=== PATIENT | female | born 1975 | race Native Hawaiian/Other Pacific Islander ===

== ENCOUNTER 2016-06-20 09:17 | Day surgery (SDC) | payer OTHER ==
[2016-06-19 13:34] VITALS: BMI 27.4
[2016-06-20] MEDS ORDERED: Lactated Ringer's 1,000 ML IV ONE (12:57)
[2016-06-20] MEDS ORDERED: Midazolam 2 MG/2 ML VIAL ONE (13:04)
[2016-06-20] MEDS ORDERED: Propofol 10 mg/ml Inj (20 ML) ONE (13:04)
[2016-06-20] MEDS ORDERED: ceFAZolin IV 1 gm in Dextrose 50 ML IVPB ONE (13:13)
[2016-06-20] MEDS ORDERED: HYDROmorphone 0.5 mg/0.5 ml ISec IVP PRN (13:33)
--- NOTE | 2016-06-20 13:34 | PCM.SURG1 ---
Surgeon's Initial Post Op Note - Surgeon's Notes Surgeon: dr barriga Hearing Screen Coordinator: none Type of Anesthesia: General LMA Anesthesia Administered By: dr العلي Pre-Operative Diagnosis: 41 yr with endometrial polyp Operative Findings: see the op reoprt Post-Operative Diagnosis: same with endometrial polyp Operation Performed: myosure/d &c, hysterscopy Specimen/Specimens Removed: ecc. emc. polyp Estimated Blood Loss: EBL {In ML}: 20 Drains Used: No Drains Post-Op Condition: Good Date of Surgery/Procedure: 06/20/16 Time of Surgery/Procedure: 14:00
[2016-06-20] MEDS ORDERED: HYDROmorphone 1 mg/ml ISec ONE (14:17)
[2016-06-20] MEDS ORDERED: Lactated Ringer's 500 ML IV ONE (15:00)
[2016-06-20 15:28] VITALS: RESP 12; O2SAT 98
[2016-06-20] MEDS ORDERED: Albuterol HFA 90 mcg/actuation (8 g) INH STA (15:47)
[2016-06-20 17:25] VITALS: TEMP 97
[2016-06-20 17:26] VITALS: BP 119/69; PULSE 73
--- NOTE | 2016-06-20 18:47 | OP ---
PROCEDURE DATE: 06/20/2016 PREOPERATIVE DIAGNOSIS: A 41-year-old 3, para 3 with endometrial polyp. POSTOPERATIVE DIAGNOSIS: A 41-year-old 3, para 3 with endometrial polyp. SURGEON: Baldev Head MD MANUFACTURE SPECIALIST SURGEON: None. PROCEDURE PERFORMED: MyoSure, D and C, hysteroscopy. COMPLICATIONS: None. ESTIMATED BLOOD LOSS: 20 mL. ANESTHESIA: General anesthesia. ANESTHESIOLOGIST: Dr. Fofana. PROCEDURE: After informed consent was obtained, the patient was brought to the operating room, place d on the table where general anesthesia was given. When anesthesia was found to be adequate, she was prepped and draped in a normal sterile fashion. Examination performed, had an 8 week sized uterus, multiparous cervix, no palpable adnexal masses. After that, a sterile catheter was done and 20 mL of urine came out. The anterior lip of the cervix was grasped with the tenaculum and gentle dilatation of the cervix was done. Then, the hysteroscope was introduced where there was found to be a polyp o n the lower uterine segment on the lateral wall of the uterus. Pictures were taken. After that, Patricio Sure was introduced and the polyp was taken out and after that, pictures were taken. After the MyoSu re was removed, ECC was done and the sharp curettage of the uterus was done. It was sent to jhon throlo. The patient tolerated the procedure well. Laps and instruments were correct x 2. Baldev Head MD cc: [id number] TT: 06/20/2016 18:46:07 sameer
== END 2016-06-20 17:10 | disposition home or self-care (01) ==
LOC: C.SDS 09:17
PROVIDERS: ATTEND Obstetrics & Gynecology
DX: N84.0 Polyp of corpus uteri (principal)
CPT/HCPCS: 58563; 88305 ×2; J0690; J1170; J2250; J2704; J3010; J7120

== ENCOUNTER 2017-07-31 12:06 | Day surgery (SDC) | payer OTHER ==
[2017-07-29 10:21] VITALS: BMI 29.2
--- NOTE | 2017-07-31 11:30 | PCM.SURG1 ---
Surgeon's Initial Post Op Note - Surgeon's Notes Surgeon: Dr. Currie Final Tester: Dr. Holcomb PGY2 Type of Anesthesia: General LMA Pre-Operative Diagnosis: Left breast cancer Operative Findings: See operative dication Post-Operative Diagnosis: Left breast Cancer Operation Performed: Left Modified Radical Mastectomy, Axillary lymph node dissection Specimen/Specimens Removed: Left Breast Estimated Blood Loss: EBL {In ML}: 250 Blood Products Given: N/A Drains Used: Jeremiah Post-Op Condition: Good Date of Surgery/Procedure: 07/31/17 Time of Surgery/Procedure: 11:30
[2017-07-31] MEDS: HYDROmorphone 0.5 mg/0.5 ml ISec IVP PRN ×4 (11:45→12:15)
[~2017-07-31 12:06] MED LIST: Albuterol 0.083% Inhal Sol (2.5 mg/3 mL) UD INH PRN; HYDROmorphone 0.5 mg/0.5 ml ISec IVP PRN; Midazolam 2 MG/2 ML VIAL ONE; Propofol 10 mg/ml Inj (20 ML) ONE; ceFAZolin 1 gm in NS 1 GM/100 ML BAG IVPB ONE
[2017-07-31] MEDS ORDERED: Oxycodone/Acetaminophen 5/325 mg Tab PO PRN (16:02)
[2017-07-31] MEDS: Oxycodone/Acetaminophen 5/325 mg Tab PO PRN (20:17)
[2017-07-31 21:04] VITALS: RESP 20
[2017-08-01] MEDS: Oxycodone/Acetaminophen 5/325 mg Tab PO PRN (05:08)
--- NOTE | 2017-08-01 06:37 | CP.SDSHP ---
Same Day Surgery H & P - History Proposed Procedure: SDS H&P Hand Written in Chart - Allergies Allergies: Allergies No Known Allergies Allergy (Verified 06/19/16 13:33) - Physical Exam Vital Signs: Vital Signs 07/31/17 08/01/17 23:20 04:00 Temperature 98.8 F 99.1 F Pulse Rate 81 71 Respiratory 20 20 Rate Blood Pressure 91/56 L 108/72 O2 Sat by Pulse 97 97 Oximetry Short Stay Discharge - Short Stay Discharge Admitting Diagnosis/Reason for Visit: LEFT BREAST CA Disposition: HOME/ ROUTINE Referrals: Jame Currie MD [Staff Provider] - 08/04/17 Instructions: Fei-Patrick Drain, Surgical Wound (DC), Mastectomy (DC), Oxycodone and Acetaminophen Additional Instructions (Diet, Activity): Please follow up with Dr. Currie on thursday in the office. You are being discharged with the drain in place, if it fills up, please empty it. Your numbness will resolve with time. If you have pain, please take the pain medication you have been prescribed. Do not drive while taking the pain medication. If you have any problems with fevers or chills, please return to hospital.
--- NOTE | 2017-08-01 06:40 | CP.PCM.PN ---
Subjective - Date & Time of Evaluation Date of Evaluation: 08/01/17 Time of Evaluation: 06:37 - Subjective Subjective: General Surgery Progress Note for Dr. Currie This 42 F was seen and examined this AM at bedside no acute events to report overnight. She reports numbness and a feeling of fullness on the underside of her left axilla. Her Jeremiah drain output has been 100cc sanguinous output since the OR. Pain is well controlled with percocet. Objective - Vital Signs/Intake and Output Vital Signs (last 24 hours): Temp Pulse Resp BP Pulse Ox 99.1 F 71 20 108/72 97 08/01/17 04:00 08/01/17 04:00 08/01/17 04:00 08/01/17 04:00 08/01/17 04:00 Intake and Output: 07/31/17 08/01/17 18:59 06:59 Intake Total 1300 350 Output Total 100 60 Balance 1200 290 - Medications Medications: Current Medications Albuterol Sulfate (Albuterol 0.083% Inhal Joy (2.5 Mg/3 Ml) Ud) 2.5 mg INH RQ6 PRN PRN Reason: Shortness of Breath Enoxaparin Sodium (Lovenox) 30 mg SC DAILY RACHEL Hydromorphone HCl (Dilaudid) 0.5 mg IVP Q4H PRN PRN Reason: Pain, moderate (4-7) Oxycodone/Acetaminophen (Percocet 5/325 Mg Tab) 1 tab PO Q4H PRN PRN Reason: Pain,SEVERE 8-10 Stop: 08/03/17 16:03 Last Admin: 08/01/17 05:08 Dose: 1 tab - Constitutional Appears: Non-toxic, No Acute Distress - Head Exam Head Exam: ATRAUMATIC, NORMOCEPHALIC - Eye Exam Eye Exam: EOMI - ENT Exam ENT Exam: Mucous Membranes Moist - Respiratory Exam Respiratory Exam: NORMAL BREATHING PATTERN - Cardiovascular Exam Cardiovascular Exam: +S1, +S2 - GI/Abdominal Exam GI & Abdominal Exam: Soft - Neurological Exam Neurological Exam: Alert, Awake - Psychiatric Exam Psychiatric exam: Normal Affect, Normal Mood - Skin Skin Exam: Dry, Intact Assessment and Plan - Assessment and Plan (Free Text) Assessment: 42F with Left breast CA POD1 s/p mastectomy Keep pressure dressing in place Remove drain followup labs likely D/C home today D/W Dr. Rosey Holcomb PGY2
[2017-08-01 08:31] VITALS: BP 101/68; PULSE 79; TEMP 97.6; O2SAT 98
[2017-08-01] MEDS ORDERED: Enoxaparin 30 mg Syringe SC SCH (10:00)
--- NOTE | 2017-08-03 06:13 | OP ---
PROCEDURE DATE: 07/31/2017 PREOPERATIVE DIAGNOSIS: Invasive carcinoma left breast. POSTOPERATIVE DIAGNOSIS: Invasive carcinoma left breast. PROCEDURE PERFORMED: Modified radicle mastectomy. FINDINGS: This patient had previous biopsy of a large breast mass that measured over 5 cm in size. She has a large palpable lymph node in the axilla. Because of these findings, I elected to do a total mastectomy with axillary node dissection instead of doing a partial with sentinel node. DESCRIPTION OF PROCEDURE: Under general anesthesia, the patient was prepared and draped in the sterile fashion. A elliptical transverse incision was made over the mass extended down to subcutaneous tissue. Flaps were divided superiorly and inferiorly then the breast was dissected free of the fascia going from medial to lateral and then going into the axilla, identifying the anterior border of this . The pectoralis muscles were then identified and also the pectoralis minor which was retracted medially and superiorly. The costocoracoid membrane was then opened, axillary vein was identified and all the structures, adipose tissue, and lymph nodes were removed leaving the intercostal brachial nerve and the nerve intact. Bleeding was controlled with electrocautery and with multiple skin marlene or vascular marlene. After removing the breast and axillary contents, the area was irrigated with large amount of saline solutions. The wound was then closed with a continuous over and over sutures of 2-0 Vicryl and the skin with multiple skin marlene. A drain was left in the separate stab wound on the left side. The estimated blood loss of about 250 to 300 mL. The patient tolerated the procedure quite well left the operating room in good condition. Jame Currie MD
== END 2017-08-01 11:50 | disposition home or self-care (01) ==
LOC: C.SDS 12:06 → C.9S 12:07 → C.6T 17:41 → C.SDS 08-01 11:50
PROVIDERS: ATTEND Surgery
DX: C50.912 Malignant neoplasm of unspecified site of left female breast (principal); J45.30 Mild persistent asthma, uncomplicated
CPT/HCPCS: 19307; 88307; 94760; J0690; J1170; J1650; J2250; J2405; J2704; J3010; J7120

== ENCOUNTER 2017-08-31 06:46 | Day surgery (SDC) | payer OTHER ==
[2017-07-29 10:21] VITALS: BMI 29.2
[2017-08-31] MEDS ORDERED: ceFAZolin 1 gm in NS 1 GM/100 ML BAG IVPB ONE (08:42)
[2017-08-31] MEDS ORDERED: Bupivacaine HCl 0.5% PF (30 ml) Inj ONE (08:47)
[2017-08-31] MEDS ORDERED: Lidocaine 2% MPF (5 ml) Inj ONE (08:48)
[2017-08-31] MEDS ORDERED: Midazolam 2 MG/2 ML VIAL ONE (09:25)
[2017-08-31] MEDS ORDERED: Propofol 10 mg/ml Inj (20 ML) ONE (09:25)
[2017-08-31] MEDS ORDERED: Lactated Ringer's 500 ML IV ONE ×2 (10:06)
--- NOTE | 2017-08-31 11:18 | RAD ---
HISTORY: r/o ptx s/p portacath insertion COMPARISON: 07/29/2017. FINDINGS: The right MediPort terminates in the SVC. LUNGS: The lungs are well inflated. There is right basilar atelectasis. No focal consolidation. PLEURA: No significant pleural effusion identified, no pneumothorax apparent. CARDIOVASCULAR: Normal. OSSEOUS STRUCTURES: No significant abnormalities. VISUALIZED UPPER ABDOMEN: Normal. OTHER FINDINGS: None. IMPRESSION: The right MediPort terminates in the SVC. No pneumothorax. Right basilar atelectasis. No lobar pneumonia.
[2017-08-31] MEDS: HYDROmorphone 0.5 mg/0.5 ml ISec IVP PRN ×2 (11:25→11:26)
[2017-08-31] MEDS ORDERED: Lactated Ringer's 1,000 ML IV ONE (11:45)
[2017-08-31 12:49] VITALS: BP 112/73; PULSE 64; RESP 18; TEMP 97.6; O2SAT 99
--- NOTE | 2017-08-31 14:33 | RAD ---
PROCEDURE: Intraoperative Fluoroscopy. HISTORY: LT. BREAST CA. FINDINGS: Fluoroscopic assistance was provided. Fluoroscopy time = 37.0 seconds. Radiation dose = 1.67 mGy Please refer to the operative report for additional details.
--- NOTE | 2017-08-31 20:43 | OP ---
DATE: 08/31/2017 PREOPERATIVE DIAGNOSIS: Carcinoma of the left breast, status post modified radical mastectomy and also seroma of the left chest wall. PROCEDURE: Under general anesthesia, the patient was prepared and draped under sterile fashion. The right subclavian vein was accessed via large core needle. Guidewire was introduced. X-rays were taken. It was into the correct position. With the guidewire in place, the introducer was then inserted, and through the introducer, the catheter for the Port-A-Cath was inserted and positioned around the area of the superior vena cava. This was then connected to the venous access port that was subsequently inserted into the subcutaneous pocket created previously. X-rays were taken. The stent was in place and is working well. The wound was then closed with 3-0 Vicryl suture for the subcutaneous tissue and the skin with subcuticular suture of 4-0 Monocryl. Attention was then focused on the small seroma on the left side. About 25 mL of serosanguineous fluid was then aspirated and sent for cultures. No bleeding was noted. Procedure terminated. No complications. Jame Currie MD
== END 2017-08-31 13:10 | disposition home or self-care (01) ==
LOC: C.SDS 06:46
PROVIDERS: ATTEND Surgery
DX: C50.812 Malignant neoplasm of overlapping sites of left female breast (principal); L76.34 Postprocedural seroma of skin and subcutaneous tissue following other procedure; Z90.12 Acquired absence of left breast and nipple; J45.909 Unspecified asthma, uncomplicated; Z98.890 Other specified postprocedural states; Z79.899 Other long term (current) drug therapy; Y83.6 Removal of other organ (partial) (total) as the cause of abnormal reaction of the patient, or of later complication, without mention of misadventure at the time of the procedure
CPT/HCPCS: 10160; 36561; 71045; 87070; J1170; J2001; J2250; J2704; J3010; J7120

== ENCOUNTER 2018-01-10 04:37 | Emergency (ER) | payer OTHER ==
[2018-01-10 04:38] VITALS: BMI 28.2
[2018-01-10 04:57] VITALS: BP 123/81; PULSE 93; RESP 18; TEMP 99.1; O2SAT 98
[2018-01-10] MEDS ORDERED: Hydrocodone/Acetaminophen 5 mg /300 mg Tab PO STA (05:08)
[2018-01-10] MEDS ORDERED: Ofloxacin 0.3% Otic Soln AD STA (05:08)
--- NOTE | 2018-01-10 05:12 | C.PDOC ---
History Of Present Illness 42 year old female patient with hx of stage 3 breast CA presents to the ER c/o right ear pain for x2 days. 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 Patient reports ear pain has returned. Patient states right ear tenderness, right-sided headache and dizziness. Patient denies fever, chills and sore throat. Patient is currently doing chemotherapy. Time Seen by Provider: 01/10/18 04:42 Chief Complaint (Nursing): ENT Problem History Per: Patient Onset/Duration Of Symptoms: Days (x2) Current Symptoms Are (Timing): Still Present Quality (Ear): Pain W/Touch Past Medical History Reviewed: Historical Data, Nursing Documentation, Vital Signs Vital Signs: Last Vital Signs Temp 99.1 F 01/10/18 04:48 Pulse 93 H 01/10/18 04:48 Resp 18 01/10/18 04:48 BP 123/81 01/10/18 04:48 Pulse Ox 98 01/10/18 04:48 - Medical History PMH: Asthma (NEVER HOSPITALIZED) Family History: States: No Known Family Hx - Social History Hx Alcohol Use: No Hx Substance Use: No - Immunization History Hx Tetanus Toxoid Vaccination: No Hx Influenza Vaccination: No Hx Pneumococcal Vaccination: Yes Review Of Systems Constitutional: Negative for: Fever, Chills ENT: Positive for: Ear Pain (right). Negative for: Throat Pain Neurological: Positive for: Headache (right-side), Dizziness Physical Exam - Physical Exam Appears: Well, Non-toxic, In Acute Distress (mild discomfort) Skin: Normal Color, Warm, Dry Head: Normacephalic Eye(s): bilateral: Normal Inspection, PERRL, EOMI Ear(s): Right: Other (pinna tenderness to palpation; mild erythema; ear cannal shut, TM not visible. no mastoid tenderness.) Nose: Normal Oral Mucosa: Moist Throat: Normal Neck: Normal ROM, Supple Neurological/Psych: Oriented x3, Normal Speech ED Course And Treatment O2 Sat by Pulse Oximetry: 98 (RA) Pulse Ox Interpretation: Normal Progress Note: Impression: righ ear pain with headache and dizziness. Plans: -- floxin. -- vicodin. reassess: Patient is resting comfortably. Tolerating PO. Patient is given Rx and explained that patient needs abx drops and PO intake despite patient's concern of PO medication mixed with her chemotherapy. Disposition Counseled Patient/Family Regarding: Diagnosis, Need For Followup, Rx Given - Disposition Referrals: Grecia Damon MD [Staff Provider] - Alfonso Adamson MD [Staff Provider] - Ling Vale MD [Staff Provider] - Disposition: HOME/ ROUTINE Disposition Time: 05:15 Condition: STABLE Additional Instructions: FOLLOW UP WITH YOUR DOCTOR IN 1-2 DAYS, AND WITH ENT SPECIALIST WITHIN 1 WEEK IF SYMPTOMS PERSIST LET YOUR ONCOLOGIST KNOW ABOUT YOUR RIGHT EAR INFECTION PRIOR TO CHEMOTHERAPY ON THURSDAY RETURN TO ER IF SYMPTOMS WORSEN Prescriptions: Ciprofloxacin [Cipro] 1 tab PO BID #14 tab Hydrocodone/Acetaminophen [Hydrocodone-Acetamin 5-325 mg] 1 each PO Q6 PRN #15 tablet PRN Reason: PAIN Ofloxacin Otic 0.3% [Floxin 0.3% Otic Soln] 10 drop GT ONCE #1 bottle Instructions: Outer Ear Infection (DC) Forms: MONO[employer] (Slovenian) Print Language: TOGOLESE - Clinical Impression Clinical Impression: Otitis externa - Scribe Statement The provider has reviewed the documentation as recorded by the Scribe Monahan Do Provider Attestation: All medical record entries made by the Scribe were at my direction and personally dictated by me. I have reviewed the chart and agree that the record accurately reflects my personal performance of the history, physical exam, medical decision making, and the department course for this patient. I have also personally directed, reviewed, and agree with the discharge instructions and disposition.
[2018-01-10] MEDS ORDERED: Hydrocodone/Acetaminophen 5 mg /300 mg Tab PO ONE (05:20)
== END 2018-01-10 05:34 | disposition home or self-care (01) ==
LOC: C.ER 04:37
DX: H60.91 Unspecified otitis externa, right ear (principal)

== ENCOUNTER 2018-05-24 12:28 | Outpatient (CLI) | payer OTHER | END 2018-05-24 12:29 | disposition home or self-care (01) | LOC: C.MRIC 12:29 | DX: R51 Headache (principal); C50.919 Malignant neoplasm of unspecified site of unspecified female breast ==

== ENCOUNTER 2018-06-21 12:24 | Outpatient (CLI) | payer OTHER | END 2018-06-21 12:25 | disposition home or self-care (01) | LOC: C.USIC 12:24 | DX: N85.00 Endometrial hyperplasia, unspecified (principal) ==

== ENCOUNTER 2018-07-20 07:13 | Day surgery (SDC) | payer OTHER | END 2018-07-20 15:29 | disposition home or self-care (01) | LOC: C.SDS 07:13 | DX: D25.9 Leiomyoma of uterus, unspecified (principal) ==

== ENCOUNTER 2018-07-21 09:04 | Outpatient (CLI) | payer OTHER | END 2018-07-21 09:05 | disposition home or self-care (01) | LOC: C.MAMMO 09:04 ==